=== PATIENT | female | born 1960 | race Caucasian/White ===

== ENCOUNTER 2020-05-15 10:19 | Outpatient (CLI) | payer OTHER ==
--- NOTE | 2020-05-15 10:35 | RAD ---
Lumbar spine: 2 views INDICATIONS:Low back pain COMPARISON:None FINDINGS: Vertebral bodies maintain normal height. Slight scoliotic curvature to the right in the AP projection . Loss of disc space at L4-5 and L5-S1. Grade 1 anterolisthesis at L4-5. Prominent facet hypertrophy at L4-5 and L5-S1. Mild degenerative spurring. No soft tissue abnormality. IMPRESSION: Degenerative changes as described
== END 2020-05-15 10:20 | disposition home or self-care (01) ==
LOC: BICRAD 10:19
PROVIDERS: ATTEND Family Medicine
DX: M54.5 Low back pain (principal); M47.816 Spondylosis without myelopathy or radiculopathy, lumbar region
CPT/HCPCS: 72100

== ENCOUNTER 2021-12-29 09:05 | Inpatient (IN) | payer OTHER ==
[2021-12-29] MEDS ORDERED: Fentanyl 100 MCG/2 ML VIAL ONE ×4 (10:11→20:25)
[2021-12-29 10:57] LABS: Hemoglobin 16.9 g/dL (12.0-16.0); Mean Corpuscular HGB CONC 33.9 g/dL (32.0-36.0); Mean Corpuscular Hemoglobin 31.1 pg (27.0-31.0); Mean Corpuscular Volume 91.9 fL (78.0-98.0); Mean Platelet Volume 8.6 fL (7.4-10.4); Platelet Count 279 thou/uL (130-400); Red Blood Cell (RBC) Count 5.42 mill/uL (4.20-5.40); White Blood Cell (WBC) Count 11.8 thou/uL (4.8-10.8)
[2021-12-29 11:13] LABS: ALT (SGPT) 15 U/L (8-55); AST (SGOT) 16 U/L (5-34); Albumin 4.2 g/dL (3.4-4.8); Alkaline Phosphatase 137 U/L (40-110); Anion Gap 14 mmol/L (10-20); BUN (Urea Nitrogen) 24 mg/dL (9.8-20.1); Band 19 % (5-11); Bilirubin, Total 0.3 mg/dL (0.2-1.2); CK (CPK) 422 U/L (29-168); Calc. Creatinine Clearance 0 mL/min (70-130); Calcium 9.8 mg/dL (7.8-10.44); Carbon Dioxide 19 mmol/L (23-31); Chloride 106 mmol/L (98-107); Estimated GFR 51; Globulin 3.1 g/dL (2.4-3.5); Glucose 299 mg/dL (80-115); Lymphocytes 6 % (21-51); MDiff Complete? YES; Monocytes 10 % (0-10); Neutrophil 63 % (42-75); Platelet Morphology Comment Appears Adequate; Potassium 4.1 mmol/L (3.5-5.1); Protein, Total 7.3 g/dL (5.8-8.1); RBC Morphology Normal; Reactive Lymphocytes 1 % (0-10); Sodium 135 mmol/L (136-145)
[2021-12-29] MEDS ORDERED: Morphine 4 MG/ML VIAL SLOW IVP PRN ×3 (11:28→20:35)
[2021-12-29] MEDS ORDERED: Ondansetron PF 4 MG/2 ML Vial IVP PRN (11:28)
[2021-12-29] MEDS ORDERED: Insulin Regular 300 UNITS/3 ML VIAL SC PRN ×2 (11:28)
[2021-12-29] MEDS ORDERED: Dextrose 5% in Water 1,000 ML IV PRN (11:28)
[2021-12-29] MEDS ORDERED: Dextrose 50% Abboject 50 ML SYRINGE SLOW IVP PRN (11:28)
[2021-12-29] MEDS ORDERED: hydrALAZINE 20 MG/ML VIAL SLOW IVP PRN (11:28)
[2021-12-29 11:35] LABS: Bilirubin Negative (Negative); Blood, Urine Negative (Negative); Clarity Clear (Clear); Glucose, Urine (Dipstick) Greater than 1000 mg/dL (Negative); Ketone, Urine Trace mg/dL (Negative); Leukocyte Negative Leu/uL (Negative); Nitrite Negative (Negative); Protein, Urine (Dipstick) 10 mg/dL (Neg-Trace); Specific Gravity, Urine 1.025 (1.002-1.036); Urobilinogen Normal mg/dL (Less than 2); pH, Urine 5.5 (5.0-9.0)
[2021-12-29] MEDS ORDERED: Morphine 4 MG/ML VIAL ONE (11:50)
[2021-12-29 12:21] LABS: Magnesium 2.2 mg/dL (1.6-2.6); Phosphorus 3.1 mg/dL (2.3-4.7)
[2021-12-29] MEDS ORDERED: Sodium Chloride 0.9% 1,000 ML IV SCH (14:45)
[2021-12-29] MEDS ORDERED: Sodium Chloride 0.9% 100 ML ONE (14:48)
[2021-12-29] MEDS ORDERED: CEFAZOLIN 2 GM VIAL ONE (14:48)
[2021-12-29] MEDS ORDERED: Neomycin-Polymyxin 1 ML AMP ONE (17:14)
[2021-12-29] MEDS ORDERED: fentaNYL Citrate/PF 100 MCG/2 ML SYRINGE ONE (17:39)
[2021-12-29] MEDS ORDERED: Midazolam HCl 2 mg/2 ml Vial ONE (17:39)
[2021-12-29] MEDS ORDERED: Famotidine/PF 20 mg/2ml Vial ONE (17:40)
[2021-12-29] MEDS ORDERED: Ondansetron PF 4 MG/2 ML Vial ONE (17:51)
[2021-12-29] MEDS ORDERED: Phenylephrine 10 MG/ML VIAL ONE (17:51)
[2021-12-29] MEDS ORDERED: Glycopyrrolate 0.2 MG/ML 5 ML SYRINGE ONE (17:51)
[2021-12-29] MEDS ORDERED: Rocuronium Bromide 10 MG/ML (10ML VIAL) ONE (17:51)
[2021-12-29] MEDS ORDERED: NEOSTIGMINE 3 MG/3 ML SYR 3 MG/3 ML SYRINGE ONE (17:51)
[2021-12-29] MEDS ORDERED: PROPOFOL 200 MG/20 ML VIAL ONE (17:51)
[2021-12-29] MEDS ORDERED: Dexamethasone 20 MG/5 ML VIAL ONE (17:51)
[2021-12-29] MEDS ORDERED: Lidocaine 1% MPF 2 ML VIAL ONE (17:51)
[2021-12-29] MEDS ORDERED: Promethazine HCl 25 MG/ML VIAL IVPB PRN (18:29)
[2021-12-29] MEDS ORDERED: Ondansetron HCl/PF 4 MG/2 ML Vial IVP PRN (18:29)
[2021-12-29] MEDS ORDERED: Meperidine HCl/PF 25 MG/ML VIAL SLOW IVP PRN (18:29)
[2021-12-29] MEDS ORDERED: HYDROmorphone 2 MG/ML VIAL SLOW IVP PRN (18:29)
[2021-12-29] MEDS ORDERED: Promethazine HCl 25 MG/ML VIAL IM PRN (18:29)
[2021-12-29] MEDS ORDERED: TETANUS, DIPHTHERIA TOX,ADULT (TDVAX) 0.5 ML VIAL IM ONE (19:57)
[2021-12-29] MEDS ORDERED: HYDROcodone/Acetaminophen 10/325 mg Tablet PO PRN (19:57)
[2021-12-29] MEDS ORDERED: Communication Order-Pharmacy FS SCH (20:00)
[2021-12-29] MEDS: HYDROcodone/Acetaminophen 10/325 mg Tablet PO PRN (22:37)
[2021-12-29] MEDS: CEFAZOLIN 2 GM in Sodium Chloride 0.9% 100 ML IVPB SCH (22:38)
[2021-12-29] MEDS: traMADol HCl 50 MG TAB PO SCH (22:45)
[2021-12-29] MEDS: Acetaminophen 500 MG TAB PO SCH (22:45)
[2021-12-29] MEDS: Aspirin 81 mg Enteric Coated Tablet PO SCH (22:46)
[2021-12-29] MEDS: Famotidine 20 MG TAB PO SCH (22:46)
[2021-12-29] MEDS: Senokot S 8.6-50 MG TAB PO SCH (22:47)
[2021-12-30 00:41] VITALS: BMI 26.6
[2021-12-30] MEDS ORDERED: traMADol HCl 50 MG TAB PO SCH (01:00)
[2021-12-30] MEDS ORDERED: Acetaminophen 500 MG TAB PO SCH (01:00)
[2021-12-30] MEDS: traMADol HCl 50 MG TAB PO SCH ×4 (01:11→18:09)
[2021-12-30] MEDS: Acetaminophen 500 MG TAB PO SCH ×4 (01:12→18:08)
[2021-12-30] MEDS: HYDROcodone/Acetaminophen 10/325 mg Tablet PO PRN (05:57)
[2021-12-30] MEDS: CEFAZOLIN 2 GM in Sodium Chloride 0.9% 100 ML IVPB SCH (05:58)
[2021-12-30] MEDS ORDERED: Levothyroxine Sodium 75 MCG TAB PO SCH (06:45)
[2021-12-30] MEDS ORDERED: Sodium Chloride 0.9% 1,000 ML IV SCH (07:15)
[2021-12-30 07:21] LABS: #Lymphocytes 0.7 thou/uL (1.20-3.40); #Monocytes 0.7 thou/uL (0.11-0.59); #Neutrophils 9.2 thou/uL (1.40-6.50); %Basophils 0.1 % (0.0-1.0); %Eosinophils 0.1 % (0.0-10.0); %Lymphocytes 6.8 % (21.0-51.0); %Monocytes 6.2 % (0.0-10.0); %Neutrophils 86.8 % (42.0-75.0); Hemoglobin 11.7 g/dL (12.0-16.0); Mean Corpuscular HGB CONC 33.2 g/dL (32.0-36.0); Mean Corpuscular Hemoglobin 30.7 pg (27.0-31.0); Mean Corpuscular Volume 92.5 fL (78.0-98.0); Mean Platelet Volume 8.9 fL (7.4-10.4); Platelet Count 276 thou/uL (130-400); RBC Distribution Width 11.8 % (11.5-14.5); Red Blood Cell (RBC) Count 3.81 mill/uL (4.20-5.40); White Blood Cell (WBC) Count 10.6 thou/uL (4.8-10.8)
[2021-12-30 07:32] LABS: Anion Gap 13 mmol/L (10-20); BUN (Urea Nitrogen) 24 mg/dL (9.8-20.1); Calc. Creatinine Clearance 61 mL/min (70-130); Calcium 8.1 mg/dL (7.8-10.44); Carbon Dioxide 22 mmol/L (23-31); Chloride 103 mmol/L (98-107); Estimated GFR 50; Glucose 421 mg/dL (80-115); Magnesium 1.9 mg/dL (1.6-2.6); Phosphorus 3.4 mg/dL (2.3-4.7); Potassium 4.5 mmol/L (3.5-5.1); Sodium 133 mmol/L (136-145)
[2021-12-30] MEDS ORDERED: Insulin Regular 300 UNITS/3 ML VIAL SC PRN ×2 (08:07→09:29)
[2021-12-30] MEDS ORDERED: Polyethylene Glycol 3350 17 GM Packet PO SCH (09:00)
[2021-12-30] MEDS ORDERED: Ondansetron PF 4 MG/2 ML Vial IVP PRN (09:27)
[2021-12-30] MEDS ORDERED: Morphine 4 MG/ML VIAL SLOW IVP PRN (09:27)
[2021-12-30] MEDS ORDERED: hydrALAZINE 20 MG/ML VIAL SLOW IVP PRN (09:29)
[2021-12-30] MEDS ORDERED: Dextrose 50% Abboject 50 ML SYRINGE SLOW IVP PRN (09:31)
[2021-12-30] MEDS ORDERED: Dextrose 5% in Water 1,000 ML IV PRN (09:32)
[2021-12-30] MEDS: Famotidine 20 MG TAB PO SCH ×3 (09:40→20:31)
[2021-12-30] MEDS: Losartan 25 MG TAB PO SCH (09:40)
[2021-12-30] MEDS: Polyethylene Glycol 3350 17 GM Packet PO SCH (09:40)
[2021-12-30] MEDS: Montelukast Sodium 10 mg Tablet PO SCH (09:41)
[2021-12-30] MEDS: Aspirin 81 mg Enteric Coated Tablet PO SCH ×2 (09:41→20:35)
[2021-12-30] MEDS: Amlodipine 5 MG TAB PO SCH (09:41)
[2021-12-30] MEDS: Senokot S 8.6-50 MG TAB PO SCH ×3 (09:42→20:31)
[2021-12-30] MEDS: HumaLOG 300 UNITS/3 ML VIAL SC SCH ×3 (12:10→20:28)
[2021-12-30] MEDS: Pramipexole Di-HCl 0.25 MG TAB PO SCH (20:30)
[2021-12-30] MEDS: Rosuvastatin 20 MG TAB PO SCH (20:31)
[2021-12-30] MEDS: traZODone HCl 50 MG TAB PO SCH (20:31)
[2021-12-31] MEDS: Acetaminophen 500 MG TAB PO SCH ×5 (00:58→23:41)
[2021-12-31] MEDS: traMADol HCl 50 MG TAB PO SCH ×5 (00:59→23:40)
[2021-12-31 05:43] LABS: #Eosinphils 0.1 thou/uL (0.0-0.7); #Lymphocytes 2.5 thou/uL (1.20-3.40); #Neutrophils 7.7 thou/uL (1.40-6.50); %Basophils 0.4 % (0.0-1.0); %Eosinophils 0.9 % (0.0-10.0); %Lymphocytes 22.2 % (21.0-51.0); %Monocytes 8.7 % (0.0-10.0); %Neutrophils 67.8 % (42.0-75.0); Hemoglobin 11.4 g/dL (12.0-16.0); Mean Corpuscular HGB CONC 33.3 g/dL (32.0-36.0); Mean Corpuscular Volume 93.1 fL (78.0-98.0); Mean Platelet Volume 8.5 fL (7.4-10.4); Platelet Count 277 thou/uL (130-400); RBC Distribution Width 11.9 % (11.5-14.5); Red Blood Cell (RBC) Count 3.68 mill/uL (4.20-5.40); White Blood Cell (WBC) Count 11.3 thou/uL (4.8-10.8)
[2021-12-31] MEDS ORDERED: Levothyroxine Sodium 75 MCG TAB PO SCH (06:00)
[2021-12-31 06:05] LABS: Anion Gap 11 mmol/L (10-20); BUN (Urea Nitrogen) 21 mg/dL (9.8-20.1); Calc. Creatinine Clearance 88 mL/min (70-130); Calcium 8.7 mg/dL (7.8-10.44); Carbon Dioxide 25 mmol/L (23-31); Chloride 104 mmol/L (98-107); Estimated GFR 77; Magnesium 2.1 mg/dL (1.6-2.6); Phosphorus 2.8 mg/dL (2.3-4.7); Potassium 3.8 mmol/L (3.5-5.1); Sodium 136 mmol/L (136-145)
[2021-12-31 06:07] LABS: Glucose 53 mg/dL (80-115)
[2021-12-31] MEDS: Levothyroxine Sodium 75 MCG TAB PO SCH (07:06)
[2021-12-31] MEDS ORDERED: PHOS-NAK 1 PKT PACK PO SCH (08:00)
[2021-12-31] MEDS: Amlodipine 5 MG TAB PO SCH (08:43)
[2021-12-31] MEDS: Famotidine 20 MG TAB PO SCH ×2 (08:44→19:51)
[2021-12-31] MEDS: Montelukast Sodium 10 mg Tablet PO SCH (08:44)
[2021-12-31] MEDS: Losartan 25 MG TAB PO SCH (08:44)
[2021-12-31] MEDS: Senokot S 8.6-50 MG TAB PO SCH ×2 (08:45→19:53)
[2021-12-31] MEDS: Polyethylene Glycol 3350 17 GM Packet PO SCH (08:45)
[2021-12-31] MEDS: Aspirin 81 mg Enteric Coated Tablet PO SCH ×2 (08:46→19:50)
[2021-12-31] MEDS: HumaLOG 300 UNITS/3 ML VIAL SC SCH ×4 (08:46→19:51)
[2021-12-31] MEDS ORDERED: NOVOLOG FS PRN (14:37)
[2021-12-31] MEDS: Pramipexole Di-HCl 0.25 MG TAB PO SCH (19:52)
[2021-12-31] MEDS: Rosuvastatin 20 MG TAB PO SCH (19:53)
[2021-12-31] MEDS: traZODone HCl 50 MG TAB PO SCH (19:54)
[2022-01-01] MEDS: Levothyroxine Sodium 75 MCG TAB PO SCH (05:29)
[2022-01-01] MEDS: Acetaminophen 500 MG TAB PO SCH ×3 (05:30→17:59)
[2022-01-01] MEDS: traMADol HCl 50 MG TAB PO SCH ×3 (05:34→17:59)
[2022-01-01] MEDS: HumaLOG 300 UNITS/3 ML VIAL SC SCH (06:09)
[2022-01-01] MEDS: Amlodipine 5 MG TAB PO SCH (09:25)
[2022-01-01] MEDS: Senokot S 8.6-50 MG TAB PO SCH ×2 (09:25→21:01)
[2022-01-01] MEDS: Losartan 25 MG TAB PO SCH (09:25)
[2022-01-01] MEDS: Montelukast Sodium 10 mg Tablet PO SCH (09:28)
[2022-01-01] MEDS: Aspirin 81 mg Enteric Coated Tablet PO SCH ×3 (09:28→20:14)
[2022-01-01] MEDS: Polyethylene Glycol 3350 17 GM Packet PO SCH (09:30)
[2022-01-01] MEDS ORDERED: traMADol HCl 50 MG TAB ONE ×2 (11:49→11:50)
[2022-01-01] MEDS: traZODone HCl 50 MG TAB PO SCH (21:01)
[2022-01-01] MEDS: Pramipexole Di-HCl 0.25 MG TAB PO SCH (21:01)
[2022-01-01] MEDS: Rosuvastatin 20 MG TAB PO SCH (21:01)
[2022-01-02] MEDS: Acetaminophen 500 MG TAB PO SCH ×4 (00:33→18:09)
[2022-01-02] MEDS: traMADol HCl 50 MG TAB PO SCH ×4 (00:34→18:09)
[2022-01-02] MEDS: Levothyroxine Sodium 75 MCG TAB PO SCH (06:08)
[2022-01-02] MEDS: Losartan 25 MG TAB PO SCH (09:34)
[2022-01-02] MEDS: Senokot S 8.6-50 MG TAB PO SCH ×2 (09:34→20:24)
[2022-01-02] MEDS: Montelukast Sodium 10 mg Tablet PO SCH (09:35)
[2022-01-02] MEDS: Amlodipine 5 MG TAB PO SCH (09:35)
[2022-01-02] MEDS: Aspirin 81 mg Enteric Coated Tablet PO SCH ×2 (09:35→20:24)
[2022-01-02] MEDS: Polyethylene Glycol 3350 17 GM Packet PO SCH (09:35)
[2022-01-02] MEDS: Rosuvastatin 20 MG TAB PO SCH (20:24)
[2022-01-02] MEDS: traZODone HCl 50 MG TAB PO SCH (20:25)
[2022-01-02] MEDS: Pramipexole Di-HCl 0.25 MG TAB PO SCH (20:26)
[2022-01-03] MEDS: Acetaminophen 500 MG TAB PO SCH ×4 (00:09→17:17)
[2022-01-03] MEDS: traMADol HCl 50 MG TAB PO SCH ×4 (00:09→17:16)
[2022-01-03] MEDS: Levothyroxine Sodium 75 MCG TAB PO SCH (05:46)
[2022-01-03] MEDS: Montelukast Sodium 10 mg Tablet PO SCH (09:48)
[2022-01-03] MEDS: Amlodipine 5 MG TAB PO SCH (09:48)
[2022-01-03] MEDS: Polyethylene Glycol 3350 17 GM Packet PO SCH (09:49)
[2022-01-03] MEDS: Aspirin 81 mg Enteric Coated Tablet PO SCH ×2 (09:49→19:28)
[2022-01-03] MEDS: Losartan 25 MG TAB PO SCH (09:49)
[2022-01-03] MEDS: Senokot S 8.6-50 MG TAB PO SCH ×2 (09:50→19:29)
[2022-01-03 16:10] VITALS: BP 111/70; TEMP 97.2
[2022-01-03] MEDS: Pramipexole Di-HCl 0.25 MG TAB PO SCH (19:28)
[2022-01-03] MEDS: Rosuvastatin 20 MG TAB PO SCH (19:28)
[2022-01-03] MEDS: traZODone HCl 50 MG TAB PO SCH (19:29)
== END 2022-01-03 19:45 | DRG 481 ==
LOC: ERS 09:05 → SDC/OP 13:34 → SURG A 19:57
PROVIDERS: ADMIT Surgery; ATTEND Surgery
PROC: 0QS704Z Reposition Left Upper Femur with Internal Fixation Device, Open Approach (ICD-10-PCS; principal; 2021-12-29)
DX: S72.22XA Displaced subtrochanteric fracture of left femur, initial encounter for closed fracture (principal); D62 Acute posthemorrhagic anemia; E87.1 Hypo-osmolality and hyponatremia; E10.22 Type 1 diabetes mellitus with diabetic chronic kidney disease; N18.30 Chronic kidney disease, stage 3 unspecified; E03.9 Hypothyroidism, unspecified; E10.649 Type 1 diabetes mellitus with hypoglycemia without coma; J30.2 Other seasonal allergic rhinitis; G25.81 Restless legs syndrome; I12.9 Hypertensive chronic kidney disease with stage 1 through stage 4 chronic kidney disease, or unspecified chronic kidney disease; E10.65 Type 1 diabetes mellitus with hyperglycemia; W18.31XA Fall on same level due to stepping on an object, initial encounter; Z88.2 Allergy status to sulfonamides; Z79.899 Other long term (current) drug therapy; Z98.890 Other specified postprocedural states; Z79.4 Long term (current) use of insulin
CPT/HCPCS: 36415; 36416; 51701; 71045; 72170; 76000; 80048; 80053; 81003; 82550; 83735; 84100; 85025; 93005; 96374; 96375; C1713; C1776; J0690; J1100; J1815; J2250; J2270; J2370; J2405; J2704; J3010; J3490; J7050; S0028